=== PATIENT | female | born 2005 | race Caucasian/White ===

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

== ENCOUNTER → 2023-07-24 | Outpatient (CLI) | payer BC ==
--- NOTE | 2023-07-24 18:25 | US ---
EXAMINATION TYPE: US abdomen complete DATE OF EXAM: 07/24/2023 COMPARISON: NONE CLINICAL INDICATION: Female, 18 years old with history of R10.2 PELVIC AND PERINEAL PAIN R10.84 ABD P AIN; pain TECHNIQUE: Multiple sonographic images of the abdomen are obtained. FINDINGS: EXAM MEASUREMENTS: Liver Length: 13 cm Gallbladder Wall: .2 cm CBD: .3 cm Spleen: 9.4 cm Right Kidney: 9.2 x 4.0 x 4.7 cm Left Kidney: 9.4 x 5.0 x 4.2 cm Pancreas: Obscured by bowel gas Liver: wnl Gallbladder: No stones seen Evidence for sonographic Talbot's sign: No CBD: wnl Spleen: wnl Right Kidney: wnl Left Kidney: wnl Upper IVC: wnl Abd Aorta: wnl IMPRESSION: Suboptimal visualization of the pancreas. Otherwise, unremarkable sonographic examination of the abdo men.
--- NOTE | 2023-07-24 19:37 | US ---
EXAMINATION TYPE: US pelvic complete DATE OF EXAM: 07/24/2023 COMPARISON: NONE CLINICAL INDICATION: Female, 18 years old with history of R10.2 PELVIC AND PERINEAL PAIN R10.84 ABD P AIN; pain TECHNIQUE: Transabdominal (TA). Transabdominal sonographic images of the pelvis were acquired. EXAM MEASUREMENTS: Uterus: 7.5 x 2.8 x 4.6 cm Endometrial Stripe: .4 cm Right Ovary: 2.6 x 2.1 x 2.8 cm Left Ovary: 2.9 x 1.7 x 2.1 cm 1. Uterus: Anteverted and otherwise wnl 2. Endometrium: wnl 3. Right Ovary: wnl 4. Left Ovary: wnl 5. Bilateral Adnexa: wnl 6. Posterior cul-de-sac: wnl IMPRESSION: Unremarkable transabdominal sonographic examination of the pelvis.
== END | disposition home or self-care (01) ==
LOC: RADUSWWP 14:48
PROVIDERS: ATTEND Family Medicine
DX: R10.84 Generalized abdominal pain (principal); R10.2 Pelvic and perineal pain
CPT/HCPCS: 76700; 76856

== ENCOUNTER → 2023-12-04 | Outpatient (CLI) | payer BC ==
--- NOTE | 2023-12-05 00:08 | CA ---
Transthoracic Echo Report Name: Latrice Bryant Age: 18 Gender: F : 2005 Exam Date: 12/04/2023 13:31 Exam Location: [facility] Ht (in): 64 Wt (lb): 165 Ordering Physician: Amada Chong DO Attending/Referring Phys: Esther Goodman [facility], 1928–1983 [employer] Trimmer Leyla Mishra RDCS Procedure CPT: Indications: R07.89 chest pain Cardiac Hx: Technical Quality: Good Contrast 1: Total Dose (mL): Contrast 2: Total Dose (mL): MEASUREMENTS (Male / Female) Normal Values 2D ECHO LV Diastolic Diameter PLAX 4.2 cm 4.2 - 5.9 / 3.9 - 5.3 cm LV Systolic Diameter PLAX 2.7 cm IVS Diastolic Thickness 0.9 cm 0.6 - 1.0 / 0.6 - 0.9 cm LVPW Diastolic Thickness 1.0 cm 0.6 - 1.0 / 0.6 - 0.9 cm LV Relative Wall Thickness 0.5 RV Internal Dim ED PLAX 2.4 cm LA Volume 47.0 cm??? 18 - 58 / 22 - 52 cm??? LA Volume Index 25.3 cm???/m??? 16 - 28 cm???/m??? M-MODE Aortic Root Diameter MM 2.6 cm LA Systolic Diameter MM 3.2 cm LA Ao Ratio MM 1.2 AV Cusp Separation MM 2.0 cm DOPPLER AV Peak Velocity 119.6 cm/s AV Peak Gradient 5.7 mmHg AV Mean Velocity 83.9 cm/s AV Mean Gradient 3.2 mmHg AV Velocity Time Integral 25.9 cm LVOT Peak Velocity 107.2 cm/s LVOT Peak Gradient 4.6 mmHg LVOT Velocity Time Integral 22.2 cm MV Area PHT 4.7 cm??? Mitral E Point Velocity 91.4 cm/s Mitral A Point Velocity 41.3 cm/s Mitral E to A Ratio 2.2 MV Deceleration Time 160.8 ms MV E' Velocity 10.2 cm/s Mitral E to MV E' Ratio 9.0 TR Peak Velocity 177.6 cm/s TR Peak Gradient 12.6 mmHg Right Ventricular Systolic Press 17.4 mmHg FINDINGS Left Ventricle Mildly increased left ventricular wall thickness. Left ventricular cavity size normal. Normal left ventricular systolic function with no obvious regional wall motion abnormalities. Left ventricular ejection fraction is estimated at 55-60 %. Right Ventricle Normal right ventricular size and function. Right ventricular systolic pressure within normal limits. Right Atrium Normal right atrial size. Left Atrium Normal left atrial size. Mitral Valve Structurally normal mitral valve. No mitral stenosis. No evidence for mitral valve prolapse. Trace to mild mitral regurgitation. Aortic Valve Trileaflet aortic valve. No aortic valve stenosis or regurgitation. Tricuspid Valve Structurally normal tricuspid valve. Mild tricuspid regurgitation. Pulmonic Valve Structurally normal pulmonic valve. Pericardium No pericardial effusion. Aorta Normal size aortic root and proximal ascending aorta. CONCLUSIONS Mildly increased left ventricular wall thickness Left ventricular ejection fraction 55-60% RVSP 17 Trace to mild mitral regurgitation Mild tricuspid regurgitation Previewed by: Dr. Rad Montoya DO (Electronically Signed) Final Date: 05 December 2023 00:07
== END | disposition home or self-care (01) ==
LOC: RADECHMAIN 13:27
PROVIDERS: ATTEND Family Medicine
DX: I34.0 Nonrheumatic mitral (valve) insufficiency (principal); I36.1 Nonrheumatic tricuspid (valve) insufficiency; I51.89 Other ill-defined heart diseases; R07.89 Other chest pain
CPT/HCPCS: 93306

== ENCOUNTER → 2024-12-14 | Outpatient (CLI) | payer BC ==
--- NOTE | 2024-12-15 06:53 | CT ---
EXAMINATION TYPE: CT abdomen pelvis w con DATE OF EXAM: 12/14/2024 HISTORY: RUQ pain that wraps around the back. hx of kidney pain x few years. CT DLP: 955mGycm Automated Exposure Control for Dose Reduction was Utilized. CONTRAST: CT scan of the abdomen and pelvis is performed with oral and with IV Contrast, patient injected with 80ml mL of Isovue 300. COMPARISON: Prior CT September 21, 2021 FINDINGS: LUNG BASES: No significant abnormality is appreciated. LIVER/GB: No significant abnormality is appreciated. PANCREAS: No significant abnormality is seen. SPLEEN: No significant abnormality is seen. ADRENALS: No significant abnormality is seen. KIDNEYS: Satisfactory corticomedullary uptake and excretion from left kidney without hydronephrosis. There is 2 mm nonobstructing calculus upper pole right kidney coronal image 54. There is at least del ayed excretion from right kidney and moderate right sided hydronephrosis due to obstructing 7 mm prox imal ureteric calculus on coronal image 48. Just proximal to this there is an additional 3 mm proxima l ureteral calculus image 49. No intraluminal calculi in the bladder. BOWEL: Oral contrast reaches the mid transverse colon. No abnormal small or large bowel dilatation. M oderate fecal prominence in the sigmoid rectal colon. GENITAL ORGANS: Anteverted uterus. Central metallic IUD is now present. LYMPH NODES: No greater than 1cm abdominal or pelvic lymph nodes are appreciated. OSSEOUS STRUCTURES: No significant abnormality is seen. OTHER: No significant additional abnormality is seen. IMPRESSION: There is 7 mm proximally right ureter calculus causing at least delayed right renal excre tion and moderate right-sided hydronephrosis. Advise urology referral. [facility], , 12/15/2024 6:50 AM
== END | disposition home or self-care (01) ==
LOC: RADCTMAIN 13:59
PROVIDERS: ATTEND Family Medicine
DX: N13.2 Hydronephrosis with renal and ureteral calculous obstruction (principal)
CPT/HCPCS: 74177; Q9967

== ENCOUNTER 2024-12-28 10:46 | Day surgery (SDC) | payer BC ==
--- NOTE | 2024-12-19 13:20 | P.HPIHPCON ---
History of Present Illness H&P Date: 12/19/24 Chief Complaint: Right ureteral stone This is a 19-year-old female with history of 2 right-sided ureteral stone, on CT there is a a 7 mm right-sided proximal stone, and a 3 mm right-sided proximal stone. She is having intractable pain secondary to her stone. Option of right- sided ureteroscopy with holmium laser versus ESWL was discussed. She agreed to proceed with right-sided ureteroscopy with holmium laser she is aware of the risk which include but not limited to bleeding, infection, injury to the ureter Consent for Procedure: I have explained the operation/procedure to the patient, including the risks, benefits, side effects, alternative therapies (including not receiving the proposed treatment or service), the likelihood of the patient achieving his/her goals, and potential recuperation problems for the procedure/sedation/analgesia, as well as any blood products, if indicated. I also explained to the patient the risks, benefits and side effects of the alternatives, as well as the risks related to not receiving the proposed procedure, care, treatment, or services. Past Medical History Past Medical History: No Reported History Additional Past Medical History / Comment(s): anxiety History of Any Multi-Drug Resistant Organisms: None Reported Past Surgical History: No Surgical Hx Reported Past Psychological History: No Psychological Hx Reported Smoking Status: Never smoker Past Alcohol Use History: None Reported Past Drug Use History: None Reported Medications and Allergies Home Medications Medication Instructions Recorded Confirmed Type Acetaminophen-Codeine 300-30mg 1 tab PO Q6H PRN #12 tablet 12/26/18 Rx [Tylenol #3] Ibuprofen [Motrin] 600 mg PO Q8HR PRN #30 tab 12/26/18 Rx Tamsulosin HCl [Flomax] 0.4 mg PO DAILY #7 cap 12/26/18 Rx HYDROcodone/APAP 5-325MG [[place] 1 tab PO Q4HR PRN 3 Days #18 tab 09/21/21 Rx 5-325] Ondansetron Odt [Zofran ODT] 4 mg PO Q8HR PRN #10 tab 09/21/21 Rx Tamsulosin [Flomax] 0.4 mg PO DAILY #14 cap 09/21/21 Rx Allergies Allergy/AdvReac Type Severity Reaction Status Date / Time No Known Allergies Allergy Verified 09/21/21 04:31 Surgical - Exam - General no distress, moderate pain - Eyes normal ocular movement, no pale - ENT normal nares, normal mucosa - Respiratory normal expansion, normal respiratory effort - Abdomen Abdomen: soft, non tender, no distended - Psychiatric oriented to time, oriented to person, oriented to place Assessment and Plan Assessment: OR for right-sided ureteroscopy holmium laser lithotripsy, stone basketing and stent insertion
[2024-12-24 15:38] VITALS: BMI 24.0
[~2024-12-28 10:46] MED LIST: HYDROmorphone 0.5 MG/0.5 ML SYRINGE IVP PRN; LIDOCAINE 1% (10MG/ML) FOR IV START INTRADERMA PRN; MIDAZOLAM 2 MG/2 ML VIAL IV PRN; fentaNYL (PF) 50 MCG/ML 2 ML AMP IVP PRN
--- NOTE | 2024-12-28 11:10 | XR ---
EXAMINATION TYPE: XR KUB DATE OF EXAM: 12/28/2024 11:03 AM COMPARISON: 12/14/2024 CLINICAL INDICATION: Female, 19 years old with history of Ureteral Stone N20.1; [facility] TECHNIQUE: One radiographic view of the abdomen was obtained. FINDINGS: The bowel gas pattern is nonspecific without dilated loops of small or large bowel. . Fecal material and gas are demonstrated throughout the colon and rectum. There is no evidence for organome chandu or pneumoperitoneum. No acute osseous process. 3 calcific densities measuring 7 mm near the ri ght transverse process of L3 similar to prior CT. IUD in place. IMPRESSION: 1. There are 3 calcific densities near the right transverse process of L3 measuring up to 7 mm these are in similar location to 12/14/2024 CT. 2. IUD present. [facility], , 12/28/2024 11:08 AM
[2024-12-28] MEDS: LACTATED RINGERS 1,000 ML IV SCH (11:51)
[2024-12-28] MEDS: DEXAMETHASONE SOD PHOSPHATE 4 MG/ML 1 ML VIAL IV ONE (11:52)
[2024-12-28] MEDS: ONDANSETRON 4 MG/2 ML VIAL IVP ONE (11:52)
[2024-12-28] MEDS: IV FLUID CONTINUATION 1,000 ML IV ONE ×2 (11:53→13:13)
[2024-12-28] MEDS ORDERED: KETOROLAC 15 MG/ML 1 ML VIAL ONE (12:27)
[2024-12-28] MEDS ORDERED: PROPOFOL 10 MG/ML 20 ML VIAL IV ONE (12:27)
[2024-12-28] MEDS ORDERED: LIDOCAINE 1% INJ 10MG/ML (20 ML MDV) ONE (12:27)
[2024-12-28] MEDS ORDERED: fentaNYL (PF) 50 MCG/ML 2 ML AMP ONE (12:27)
[2024-12-28] MEDS ORDERED: MIDAZOLAM 2 MG/2 ML VIAL ONE (12:27)
--- NOTE | 2024-12-28 13:13 | P.OP ---
Date of Procedure: 12/28/24 Preoperative Diagnosis: Right ureteral stone Postoperative Diagnosis: Same Procedure(s) Performed: Cystoscopy, right ureteroscopy and stent insertion Implants: 6 Ethiopian by 24 cm stent in the right ureter Anesthesia: KIMMY Surgeon: Philippe Hi Estimated Blood Loss (ml): 5 Pathology: none sent Condition: stable Disposition: PACU Indications for Procedure: This is a 19-year-old female with history of 2 right-sided ureteral stone, on CT there is a a 7 mm right-sided proximal stone, and a 3 mm right-sided proximal stone. She is having intractable pain secondary to her stone. Option of right- sided ureteroscopy with holmium laser versus ESWL was discussed. She agreed to proceed with right-sided ureteroscopy with holmium laser she is aware of the risk which include but not limited to bleeding, infection, injury to the ureter Operative Findings: Right sided impacted ureteral stone Description of Procedure: Patient brought to the operating room, general anesthesia was induced. She was prepped and draped in sterile fashion placed in a dorsolithotomy position. Cystoscopy fitted with a 21 Ethiopian sheath was inserted per urethra, cystoscopy was performed showed no abnormality within the bladder. Attention was then carried to the right ureteral orifice, I advanced a wire through the cystoscope and up the right ureteral orifice, at this point I was unable to advance the wire past the stone as the stone was impacted. At this time an 1113 Ethiopian access sheath was passed over the wire and distal to the stone. At this time using the flexible ureteroscope I was able to navigate a sensor wire across the stone and into the kidney. Of note there was significant amount of ureteral edema at that level. Given this finding decision was made to proceed with a stent insertion. At this time pullback ureteroscopy was performed showed no injury to the ureter or any ureteral stones.. Next a 6 Ethiopian by 24 cm stent ureteral stent was passed over the wire. The proximal curl was realized on fluoroscopy and the distal curl was visualized using the cystoscope. The bladder was emptied at the end of the case. Patient tolerated procedure was taken recovery in stable condition
[2024-12-28 13:19] VITALS: TEMP 97
--- NOTE | 2024-12-28 13:37 | FL ---
EXAMINATION TYPE: FL guidance operating room DATE OF EXAM: 12/28/2024 1:32 PM COMPARISON: Pre Operative Images if available both CT/MRI or plain film CLINICAL INDICATION: Female, 19 years old with history of URETERAL STONE; TECHNIQUE: FL guidance operating room, multiple fluoroscopic images provided for procedure. DAP: 0.41965 mGym2 Gycm2 uGym2 cGycm2 or equivalent. FINDINGS: Multiple intraoperative fluoroscopic images were taken resulting in ureteral stent placement with sup erior pigtail in appropriate position projecting over the renal pelvis. No immediate intraoperative c omplication. Multilevel degeneration changes throughout the spine. IMPRESSION: 1. No evidence for intraoperative complication. 2. Please see the operative/procedural note for further details. [facility], , 12/28/2024 1:35 PM
[2024-12-28 14:15] VITALS: BP 117/76; PULSE 64; RESP 18
== END 2024-12-28 14:21 | disposition home or self-care (01) ==
LOC: OR 10:46
PROVIDERS: ATTEND Urology
DX: N20.1 Calculus of ureter (principal); Z90.09 Acquired absence of other part of head and neck; Z88.1 Allergy status to other antibiotic agents; Z79.1 Long term (current) use of non-steroidal anti-inflammatories (NSAID); Z79.899 Other long term (current) drug therapy
CPT/HCPCS: 81025; 74018; 52332; 52351; C2625; C1769; J2250; J1100; J0690; J2405; J2003; J3010; J1885; J2704

== ENCOUNTER 2025-01-11 08:03 | Day surgery (SDC) | payer BC ==
[~2025-01-11 08:03] MED LIST changes: -LIDOCAINE 1% (10MG/ML) FOR IV START INTRADERMA PRN; -MIDAZOLAM 2 MG/2 ML VIAL IV PRN; -fentaNYL (PF) 50 MCG/ML 2 ML AMP IVP PRN
--- NOTE | 2025-01-11 08:27 | XR ---
EXAMINATION TYPE: XR KUB DATE OF EXAM: 01/11/2025 8:20 AM CLINICAL INDICATION: Female, 19 years old with history of N20.1 ureteral stone, pain TECHNIQUE: 2 supine images of the abdomen. COMPARISON: Abdominal x-ray 2 weeks earlier. FINDINGS: There is new right double-J ureter stent. At the Proximal portion of the stent there is red emonstration of a 5 mm calculus at L2-L3 level likely near the UPJ. No new nephrolithiasis. Metallic IUD in the pelvis is redemonstrated. There is overall nonobstructive bowel gas pattern. Osse ous structures are intact. IMPRESSION: As above. [facility], , 01/11/2025 8:25 AM
[2025-01-11] MEDS: IV FLUID CONTINUATION 1,000 ML IV ONE (08:49)
[2025-01-11] MEDS: ONDANSETRON 4 MG/2 ML VIAL IVP ONE (09:04)
[2025-01-11] MEDS: DEXAMETHASONE SOD PHOSPHATE 4 MG/ML 1 ML VIAL IV ONE (09:04)
[2025-01-11] MEDS: LACTATED RINGERS 1,000 ML IV SCH (09:04)
--- NOTE | 2025-01-11 09:13 | P.HPIHPCON ---
History of Present Illness H&P Date: 01/11/25 Chief Complaint: Right ureteral stone This is a 81-asil-[age]-year-old female with history of a right-sided proximal stone, status post stent insertion on December 28. She presents today for definitive stone management. Attempt to do ureteroscopy on December 28 was unsuccessful secondary to an impacted stone. She presents today for right-sided ureteroscopy with holmium laser. She is aware of the risk which include but not limited to bleeding, infection, injury to the ureter Consent for Procedure: I have explained the operation/procedure to the patient, including the risks, benefits, side effects, alternative therapies (including not receiving the proposed treatment or service), the likelihood of the patient achieving his/her goals, and potential recuperation problems for the procedure/sedation/analgesia, as well as any blood products, if indicated. I also explained to the patient the risks, benefits and side effects of the alternatives, as well as the risks related to not receiving the proposed procedure, care, treatment, or services. Past Medical History Past Medical History: Chest Pain / Angina Additional Past Medical History / Comment(s): kidney stones. " 2 heart valves don't close properly" heart palpitations at times with exertion or anxiety. pt states she has "chest pain" unknown if due to anxiety," lasts a few seconds",states last episode 01/05/25. ( Amna at Dr Hi's office to let Dr Hi know) History of Any Multi-Drug Resistant Organisms: None Reported Past Surgical History: No Surgical Hx Reported Additional Past Surgical History / Comment(s): Dental/mouth surgery for tooth impaction, IUD placement. ureteral stent placed. Past Anesthesia/Blood Transfusion Reactions: Previous Problems w/ Anesthesia Additional Past Anesthesia/Blood Transfusion Reaction / Comment(s): Passed out X2 post op after last surgery for mouth at oral surgeon, no problem with last stent placement. no hx of blood transfusion Smoking Status: Never smoker - Past Family History Sister(s) Family Medical History: Cancer Additional Family Medical History / Comment(s): mouth CA Medications and Allergies Home Medications Medication Instructions Recorded Confirmed Type Tamsulosin [Flomax] 0.4 mg PO DAILY #14 cap 09/21/21 01/11/25 Rx Acetaminophen [Tylenol Extra 500 mg PO DIRECTED PRN 12/24/24 01/11/25 History Strength] Cyanocobalamin [Vitamin B-12 1,000 mcg IM QMONTHLY 12/24/24 01/11/25 History Injection] Cephalexin [Keflex] 500 mg PO Q8HR #15 cap 12/28/24 01/11/25 Rx Ketorolac [Toradol] 10 mg PO Q6HR PRN 01/06/25 01/11/25 History hydrOXYzine HCL [Hydroxyzine HCl] 10 mg PO DIRECTED PRN 01/06/25 01/11/25 History Allergies Allergy/AdvReac Type Severity Reaction Status Date / Time sulfamethoxazole AdvReac Vomiting Verified 01/11/25 08:56 [From Bactrim] trimethoprim [From Bactrim] AdvReac Vomiting Verified 01/11/25 08:56 Surgical - Exam Vital Signs Temp Pulse Resp BP Pulse Ox 98.8 F 100 18 120/72 97 01/11/25 08:45 01/11/25 08:45 01/11/25 08:45 01/11/25 08:45 01/11/25 08:45 - General no distress, no pain - Eyes normal ocular movement, no pale - ENT normal nares, normal mucosa - Respiratory normal expansion, normal respiratory effort - Abdomen Abdomen: soft, non tender Assessment and Plan Assessment: OR for right-sided ureteroscopy, holmium laser lithotripsy, stone basketing and stent removal
[2025-01-11] MEDS ORDERED: PHENYLEPHRINE 10 MG/ML VIAL ONE (09:27)
[2025-01-11] MEDS ORDERED: PROPOFOL 10 MG/ML 20 ML VIAL IV ONE (09:27)
[2025-01-11] MEDS ORDERED: fentaNYL (PF) 50 MCG/ML 2 ML AMP ONE (09:27)
[2025-01-11] MEDS ORDERED: LIDOCAINE 1% INJ 10MG/ML (20 ML MDV) ONE (09:27)
[2025-01-11] MEDS ORDERED: MIDAZOLAM 2 MG/2 ML VIAL ONE (09:27)
--- NOTE | 2025-01-11 10:31 | FL ---
EXAMINATION TYPE: FL guidance operating room DATE OF EXAM: 01/11/2025 CLINICAL INDICATION: Female, 19 years old with history of URETERAL STONE, TECHNIQUE: Fluoroscopy. COMPARISON: KUB x-ray earlier today. FINDINGS: Fluoroscopic guidance was provided during cystoscopy with laser Stone removal procedure pe rformed by Dr. Moreno. A total of 5 seconds of fluoroscopic time was utilized during the procedure a nd 2 spot images was acquired. TOTAL DAP = 0.2402 Gycm2. IMPRESSION: As Above. [facility], , 01/11/2025 10:29 AM
[2025-01-11 10:33] VITALS: TEMP 97.1
--- NOTE | 2025-01-11 10:47 | P.OP ---
Date of Procedure: 01/11/25 Preoperative Diagnosis: Right ureteral stone Postoperative Diagnosis: Same Procedure(s) Performed: Cystoscopy, right ureteroscopy, holmium laser lithotripsy, stone basketing and stent removal Implants: None Anesthesia: MYLESA Surgeon: Philippe Hi Estimated Blood Loss (ml): 5 Pathology: other (Right ureteral stone) Condition: stable Disposition: PACU Indications for Procedure: This is a 4-lwks-hnm-year-old female with history of a right-sided proximal stone, status post stent insertion on December 28. She presents today for definitive stone management. Attempt to do ureteroscopy on December 28 was unsuccessful secondary to an impacted stone. She presents today for right-sided ureteroscopy with holmium laser. She is aware of the risk which include but not limited to bleeding, infection, injury to the ureter Operative Findings: Right-sided proximal stone, a couple of small stones in the right lower pole of the kidney Description of Procedure: Patient brought to the operating room, general anesthesia was induced. She was prepped and draped in sterile fashion and placed in dorsolithotomy position. Cystoscopy fitted through the 21 [place]ian sheath was inserted per urethra, cystoscopy was performed which showed no abnormality within the bladder. Next the ureteral stent was grasped and removed intact. Next a semirigid ureteroscope was inserted per urethra and advanced up the right ureteral orifice, the stone was advanced to the proximal ureter which showed a stone in that level, given the angle of the stone I was unable to fragment the stone using the semirigid ureteroscope. This time a wire was advanced through the ureteroscope and into the kidney under fluoroscopy, pullback ureteroscopy was performed showed no injury to the ureter or any ureteral stones. Next an 1113 Bel[place]ian access sheath was passed over the wire and into the proximal ureter. Next a flexible ureteroscope was inserted through the access sheath, stone in the proximal ureter was fragmented using the holmium laser, stone fragments were removed using a stone basket. Few additional stones were seen in the lower pole which were also removed. Repeat renoscopy showed no sizable fragments or injury to the kidney. Pullback ureteroscopy was performed showed no injury to the ureter or any ureteral stones. The bladder was emptied at the end of the case. Patient tolerated procedure well was taken to recovery in stable condition
[2025-01-11 10:53] VITALS: RESP 16
[2025-01-11] MEDS: KETOROLAC 15 MG/ML 1 ML VIAL IVP STA (11:15)
[2025-01-11 11:43] VITALS: BP 112/74; PULSE 76
== END 2025-01-11 12:26 | disposition home or self-care (01) ==
LOC: OR 08:03
PROVIDERS: ATTEND Urology
DX: N20.1 Calculus of ureter (principal); I08.9 Rheumatic multiple valve disease, unspecified; R00.2 Palpitations; F41.9 Anxiety disorder, unspecified; Z87.442 Personal history of urinary calculi; Z88.2 Allergy status to sulfonamides; Z88.1 Allergy status to other antibiotic agents; Z79.899 Other long term (current) drug therapy
CPT/HCPCS: 81025; 82365; 74018; 52353; C1894; C1769; J2250; J1100; J0690; J2405; J2003; J3010; J1885; J2704; J2371